=== PATIENT | male | born 1960 | race Asian ===

== ENCOUNTER 2020-10-18 06:56 | Day surgery (SDC) | payer OTHER, SELFPAY ==
[~2020-10-18] VITALS: Ht 170.2 cm; Wt 70.3 kg
[2020-10-18] MEDS ORDERED: fentaNYL citrate 0.05 MG/ML VIAL ONE ×2 (08:27→08:31)
[2020-10-18] MEDS ORDERED: MIDAZOLAM 5 MG/5 ML VIAL ONE (08:27)
[2020-10-18] MEDS ORDERED: diphenhydrAMINE 50 MG/ML VIAL ONE (08:27)
[2020-10-18] MEDS ORDERED: MIDAZOLAM 2 MG/2 ML VIAL IVP ONE ×2 (09:05→09:10)
[2020-10-18] MEDS ORDERED: fentaNYL citrate 0.05 MG/ML VIAL IVP ONE (09:05)
== END 2020-10-18 09:30 | disposition home or self-care (01) ==
LOC: MLB 06:56 → MMU 06:57 → MLB 09:30
PROVIDERS: ATTEND Internal Medicine Gastroenterology
DX: R10.13 Epigastric pain (principal); E78.5 Hyperlipidemia, unspecified; F17.210 Nicotine dependence, cigarettes, uncomplicated; Z20.828 Contact with and (suspected) exposure to other viral communicable diseases; Z79.899 Other long term (current) drug therapy
CPT/HCPCS: 43235; J2250; J3010; U0003; J1200